=== PATIENT | female | born 1960 ===

== ENCOUNTER 2019-03-03 09:00 | Day surgery (SDC) | payer MEDICARE, BC ==
[2019-03-03] MEDS ORDERED: CLON.5 PO (09:43)
[2019-03-03] MEDS ORDERED: Estradiol2 MG PO (09:43)
[2019-03-03] MEDS ORDERED: Norco 7.5-3251 EACH PO (09:44)
[2019-03-03] MEDS ORDERED: GABA300 PO (09:44)
[2019-03-03] MEDS ORDERED: Adderall 20 MG20 MG PO (09:45)
[2019-03-03] MEDS ORDERED: FERRLECIT62.5 MG/5 IV (09:46)
[2019-03-03] MEDS ORDERED: CYAN1000I SC (09:47)
== END 2019-03-03 10:55 | disposition home or self-care (01) ==
LOC: ATC 09:00
DX: E61.1 Iron deficiency (principal); N18.9 Chronic kidney disease, unspecified; D63.1 Anemia in chronic kidney disease; Z79.899 Other long term (current) drug therapy; Z88.5 Allergy status to narcotic agent
CPT/HCPCS: J2916

== ENCOUNTER 2019-09-03 00:15 | Day surgery (SDC) | payer MEDICARE, BC ==
[~2019-09-03 00:15] MED LIST: Adderall 20 MG20 MG PO; CLARITIN10 MG PO; CLON.5 PO; CYAN1000I SC; Estradiol2 MG PO; FERRLECIT62.5 MG/5 IV; GABA300 PO; Mobic15 MG PO; Norco 7.5-3251 EACH PO
== END 2019-09-03 11:41 | disposition home or self-care (01) ==
LOC: ATC 00:15
DX: E61.1 Iron deficiency (principal); M79.7 Fibromyalgia; N18.9 Chronic kidney disease, unspecified; D63.1 Anemia in chronic kidney disease; F98.8 Other specified behavioral and emotional disorders with onset usually occurring in childhood and adolescence; G25.0 Essential tremor; G89.29 Other chronic pain; M54.30 Sciatica, unspecified side; F33.1 Major depressive disorder, recurrent, moderate; Z96.641 Presence of right artificial hip joint; Z90.49 Acquired absence of other specified parts of digestive tract; Z90.710 Acquired absence of both cervix and uterus; Z98.84 Bariatric surgery status; Z79.1 Long term (current) use of non-steroidal anti-inflammatories (NSAID); Z79.890 Hormone replacement therapy; Z79.899 Other long term (current) drug therapy; Z88.5 Allergy status to narcotic agent; Z91.040 Latex allergy status; Z91.018 Allergy to other foods
CPT/HCPCS: 96365; J2916

== ENCOUNTER 2019-09-17 00:14 | Day surgery (SDC) | payer MEDICARE, BC | END 2019-09-17 11:38 | disposition home or self-care (01) | LOC: ATC 00:14 | DX: E61.1 Iron deficiency (principal); N18.9 Chronic kidney disease, unspecified; D63.1 Anemia in chronic kidney disease; M54.30 Sciatica, unspecified side; F33.1 Major depressive disorder, recurrent, moderate; G25.0 Essential tremor; M79.7 Fibromyalgia; G89.29 Other chronic pain; F90.9 Attention-deficit hyperactivity disorder, unspecified type; Z87.442 Personal history of urinary calculi; Z98.84 Bariatric surgery status; Z88.5 Allergy status to narcotic agent; Z91.018 Allergy to other foods; Z91.040 Latex allergy status; Z79.890 Hormone replacement therapy; Z79.899 Other long term (current) drug therapy | CPT/HCPCS: 96365; J2916 ==

== ENCOUNTER 2019-10-01 00:19 | Day surgery (SDC) | payer MEDICARE, BC | END 2019-10-01 11:47 | disposition home or self-care (01) | LOC: ATC 00:19 | DX: E61.1 Iron deficiency (principal); G25.0 Essential tremor; M79.7 Fibromyalgia; G89.29 Other chronic pain; M54.9 Dorsalgia, unspecified; F33.1 Major depressive disorder, recurrent, moderate; Z79.899 Other long term (current) drug therapy; F98.8 Other specified behavioral and emotional disorders with onset usually occurring in childhood and adolescence; Z98.84 Bariatric surgery status; Z90.49 Acquired absence of other specified parts of digestive tract; Z90.710 Acquired absence of both cervix and uterus; Z88.5 Allergy status to narcotic agent; Z91.018 Allergy to other foods; Z91.040 Latex allergy status; Z79.890 Hormone replacement therapy | CPT/HCPCS: 96365; J2916 ==

== ENCOUNTER 2021-01-06 00:04 | Day surgery (SDC) | payer MEDICARE, BC ==
[2021-01-06] MEDS ORDERED: TRAZ100 PO (14:17)
== END 2021-01-06 14:55 | disposition home or self-care (01) ==
LOC: ATC 00:04
DX: E61.1 Iron deficiency (principal); M79.7 Fibromyalgia; F98.8 Other specified behavioral and emotional disorders with onset usually occurring in childhood and adolescence; N18.9 Chronic kidney disease, unspecified; G25.0 Essential tremor; F33.1 Major depressive disorder, recurrent, moderate; F11.20 Opioid dependence, uncomplicated; M25.549 Pain in joints of unspecified hand; M53.3 Sacrococcygeal disorders, not elsewhere classified; G89.29 Other chronic pain; M54.5 Low back pain; Z88.5 Allergy status to narcotic agent; Z98.84 Bariatric surgery status
CPT/HCPCS: 96365; 96375; J1200; J1720; J2916

== ENCOUNTER 2021-01-20 00:37 | Day surgery (SDC) | payer MEDICARE, BC ==
[~2021-01-20 00:37] MED LIST changes: +TRAZ100 PO
[2021-01-20] MEDS ORDERED: LORA10ER PO (10:45)
== END 2021-01-20 12:11 | disposition home or self-care (01) ==
LOC: ATC 00:37
DX: E61.1 Iron deficiency (principal); M79.7 Fibromyalgia; F98.8 Other specified behavioral and emotional disorders with onset usually occurring in childhood and adolescence; N18.9 Chronic kidney disease, unspecified; F33.1 Major depressive disorder, recurrent, moderate; G89.29 Other chronic pain; M54.5 Low back pain; M25.549 Pain in joints of unspecified hand; F11.20 Opioid dependence, uncomplicated; Z88.5 Allergy status to narcotic agent; Z98.84 Bariatric surgery status
CPT/HCPCS: 96365; 96375; J1200; J1720; J2916

== ENCOUNTER 2023-03-21 04:02 | Day surgery (SDC) | payer MEDICARE, BC ==
[~2023-03-21 04:02] MED LIST changes: +LORA10ER PO
[2023-03-21 10:16] VITALS: BP 133/85
== END 2023-03-21 11:15 | disposition home or self-care (01) ==
LOC: ATC 04:02
DX: E61.1 Iron deficiency (principal); M53.2X6 Spinal instabilities, lumbar region; M54.16 Radiculopathy, lumbar region; M51.06 Intervertebral disc disorders with myelopathy, lumbar region; F11.20 Opioid dependence, uncomplicated; F33.1 Major depressive disorder, recurrent, moderate; F41.9 Anxiety disorder, unspecified; E53.8 Deficiency of other specified B group vitamins
CPT/HCPCS: 96365; J1756

== ENCOUNTER 2024-06-04 05:46 | Day surgery (SDC) | payer MEDICARE, BC ==
[2024-06-04] MEDS ORDERED: Sod Ferric Gluc Complx/Sucrose 125 MG in NS 100 ML IV SCH (06:00)
[2024-06-04 15:15] VITALS: BP 137/88
== END 2024-06-04 23:10 | disposition home or self-care (01) ==
LOC: ATC 05:46
DX: E61.1 Iron deficiency (principal); M53.2X6 Spinal instabilities, lumbar region; M54.16 Radiculopathy, lumbar region; M51.06 Intervertebral disc disorders with myelopathy, lumbar region; F11.20 Opioid dependence, uncomplicated; F33.1 Major depressive disorder, recurrent, moderate; F41.9 Anxiety disorder, unspecified; E53.8 Deficiency of other specified B group vitamins; Z88.5 Allergy status to narcotic agent
CPT/HCPCS: 96365; J2916

== ENCOUNTER 2024-06-11 00:51 | Day surgery (SDC) | payer MEDICARE, BC ==
[2024-06-11] MEDS ORDERED: Sod Ferric Gluc Complx/Sucrose 125 MG in NS 100 ML IV SCH (13:15)
[2024-06-11 15:12] VITALS: BP 125/78
== END 2024-06-11 16:10 | disposition home or self-care (01) ==
LOC: ATC 00:51
DX: E61.1 Iron deficiency (principal); Z88.5 Allergy status to narcotic agent
CPT/HCPCS: 96365; J2916

== ENCOUNTER 2024-06-17 00:39 | Day surgery (SDC) | payer MEDICARE, BC ==
[2024-06-17] MEDS ORDERED: Sod Ferric Gluc Complx/Sucrose 125 MG in NS 100 ML IV SCH (06:00)
[2024-06-17 14:53] VITALS: BP 118/84
== END 2024-06-17 15:58 | disposition home or self-care (01) ==
LOC: ATC 00:39
DX: E61.1 Iron deficiency (principal); F33.1 Major depressive disorder, recurrent, moderate; Z79.899 Other long term (current) drug therapy
CPT/HCPCS: 96365; J2916